=== PATIENT | male | born 1975 | race Caucasian/White ===

== ENCOUNTER 2019-03-01 22:38 | Inpatient (IN) ==
[2019-03-01] MEDS ORDERED: SODIUM CHLORIDE 0.9% 1,000 ML IV STA (23:02)
[2019-03-01] MEDS ORDERED: HYDROmorphone 2 MG/1 ML VIAL IV STA (23:02)
[2019-03-01] MEDS ORDERED: ONDANSETRON 4 MG/2 ML VIAL IV STA (23:02)
[2019-03-01] MEDS ORDERED: KETOROLAC 30 MG/1 ML VIAL IV STA (23:02)
[2019-03-01] MEDS ORDERED: PIPERACILLIN/TAZOBACTAM 3,375 MG in SODIUM CHLORIDE 0.9% 100 ML IV STA (23:45)
[2019-03-01 23:59] LABS: Apearance,Urine CLOUDY (Clear); Bilirubin,Urine Negative (Negative); Blood, Urine Negative (Negative); Glucose,Urine (UA) Negative (Negative); Ketones,Urine Negative (Negative); Nitrite,Urine Negative (Negative); Protein,Urine Negative; RBC,Urine 2 /HPF (0-4); Urine Color Yellow (Yellow); Urine Specific Gravity 1.024 (1.001-1.035)
[2019-03-02 00:28] LABS: Basophils # 0.1 10*3/uL (0.0-0.2); Basophils % 0.5 % (0.0-0.8); Eosinophils # 0.4 10*3/uL (0.0-0.87); Eosinophils % 3.2 % (0.00-10.9); Hematocrit 46.9 VOL% (42.0-52.0); Hemoglobin 15.7 GM/DL (14.0-18.0); Immature Granulocytes % 0.5 %; Immature Granulocytes Absolute 0.06 #; Lymphocytes % 15.8 % (21.2-54.2); Mean Corpuscular HGB Conc 33.5 GM/DL (32-36); Mean Corpuscular Volume 86.5 FL (87-102); Mean Platelet Volume 10.2 FL (9.6-12.0); Monocytes % 8.2 % (1.7-12.7); Neutrophils % 71.8 % (38.7-73.9); Platelet Count 245 T/CUMM (130-400); Red Blood Count 5.42 MC/CUMM (3.8-5.5); Red Cell Distribution Width 14.1 % (9.3-17.3); White Blood Count 12.6 T/CUMM (4-12)
[2019-03-02 03:25] LABS: Alanine Aminotransferase 27 U/L (16-61); Albumin 3.8 G/DL (3.4-5.0); Alkaline Phosphatase 92 U/L (45-117); Amylase 41 U/L (25-115); Aspartate Amino Transferase 18 U/L (0-37); Bilirubin,Total < 0.39 MG/DL (0.2-1.0); Blood Urea Nitrogen 20 MG/DL (7-18); Calcium 8.9 MG/DL (8.5-10.1); Estimated Glom Filtration Rate 150 ML/MIN; Glucose 119 MG/DL (74-106); Total Protein 7.2 G/DL (6.4-8.3); Troponin I < 0.015 NG/ML (0.00-0.045)
[2019-03-02] MEDS ORDERED: ACETAMINOPHEN 325 MG TABLET PO PRN (04:35)
[2019-03-02] MEDS ORDERED: ONDANSETRON 4 MG/2 ML VIAL IV PRN (04:35)
[2019-03-02] MEDS: SODIUM CHLORIDE 0.9% 1,000 ML IV SCH ×2 (05:00→20:39)
[2019-03-02] MEDS ORDERED: ceFAZolin 1,000 MG in SYRINGE 1 EACH IV ONE (07:20)
[2019-03-02] MEDS ORDERED: ceFAZolin 1,000 MG VIAL ONE (07:42)
[2019-03-02] MEDS ORDERED: LIDOCAINE 1%/EPI INJ 20 ML VIAL ONE (08:24)
[2019-03-02] MEDS ORDERED: BUPIVACAINE MPF 0.25% 30 ML VIAL ONE (08:24)
[2019-03-02] MEDS ORDERED: SUGAMMADEX 200 MG/2 ML VIAL IV ONE (09:35)
[2019-03-02] MEDS ORDERED: TISSUE ADHESIVE 1 EACH APPLICATOR TOP ONE (09:39)
[2019-03-02] MEDS ORDERED: propofoL 200 MG/20 ML VIAL IV ONE (10:03)
[2019-03-02] MEDS ORDERED: fentaNYL 100 MCG/2 ML VIAL ONE (10:04)
[2019-03-02] MEDS ORDERED: LIDOCAINE 2% 5 ML VIAL ONE (10:04)
[2019-03-02] MEDS ORDERED: MIDAZOLAM 2 MG/2 ML VIAL ONE (10:04)
[2019-03-02] MEDS ORDERED: ONDANSETRON 4 MG/2 ML VIAL ONE (10:04)
[2019-03-02] MEDS ORDERED: SUCCINYLCHOLINE 200 MG/10 ML VIAL ONE (10:04)
[2019-03-02] MEDS ORDERED: SEVOFLURANE 1 UNIT/15 MINUTE INH ONE (10:04)
[2019-03-02] MEDS ORDERED: PHENYLEPHRINE 1 MG/10 ML SYRINGE IV ONE (10:04)
[2019-03-02] MEDS ORDERED: DEXAMETHASONE 4 MG/1 ML VIAL ONE (10:04)
[2019-03-02] MEDS ORDERED: ROCURONIUM 100 MG/10 ML VIAL IV ONE (10:05)
[2019-03-02] MEDS ORDERED: SODIUM CHLORIDE 0.9% 1,000 ML IV ONE (10:05)
[2019-03-02] MEDS: HYDROmorphone 2 MG/1 ML VIAL IV PRN ×3 (12:28→20:32)
[2019-03-02] MEDS: PIPERACILLIN/TAZOBACTAM 3,375 MG in SODIUM CHLORIDE 0.9% 100 ML IV SCH ×2 (12:34→20:33)
[2019-03-02] MEDS: PANTOPRAZOLE 40 MG VIAL IV SCH (12:35)
[2019-03-03] MEDS: HYDROmorphone 2 MG/1 ML VIAL IV PRN ×2 (01:54→11:32)
[2019-03-03] MEDS: PIPERACILLIN/TAZOBACTAM 3,375 MG in SODIUM CHLORIDE 0.9% 100 ML IV SCH ×2 (05:29→16:22)
[2019-03-03 05:48] LABS: Basophils % 0.2 % (0.0-0.8); Hematocrit 44.4 VOL% (42.0-52.0); Hemoglobin 14.9 GM/DL (14.0-18.0); Immature Granulocytes % 0.8 %; Immature Granulocytes Absolute 0.16 #; Lymphocytes # 1.1 10*3/uL (1.4-4.0); Lymphocytes % 5.2 % (21.2-54.2); Mean Corpuscular HGB Conc 33.6 GM/DL (32-36); Mean Corpuscular Volume 85.5 FL (87-102); Mean Platelet Volume 10.4 FL (9.6-12.0); Monocytes % 6.5 % (1.7-12.7); Neutrophils % 87.3 % (38.7-73.9); Platelet Count 222 T/CUMM (130-400); Red Blood Count 5.19 MC/CUMM (3.8-5.5); White Blood Count 20.7 T/CUMM (4-12)
[2019-03-03 06:09] LABS: Albumin 3.1 G/DL (3.4-5.0); Bilirubin,Total 1.5 MG/DL (0.2-1.0); Calcium 8.6 MG/DL (8.5-10.1); Osmolality,Calculated 273.8 MOS/KG (273-304); Total Protein 7.1 G/DL (6.4-8.3)
[2019-03-03 06:14] LABS: Lymphocytes 4 % (20-55); Platelet Estimate Normal; Segmented Neutrophils 90 % (50-85); Total Cells Counted 100
[2019-03-03] MEDS: DEXT 5% LACT RING KCL 20 MEQ 20 MEQ/1,000 ML BAG IV SCH ×2 (08:30→21:50)
[2019-03-03 09:01] LABS: Basophils % 0.1 % (0.0-0.8); Hematocrit 43.9 VOL% (42.0-52.0); Hemoglobin 14.8 GM/DL (14.0-18.0); Immature Granulocytes % 0.7 %; Immature Granulocytes Absolute 0.16 #; Lymphocytes # 0.8 10*3/uL (1.4-4.0); Lymphocytes % 3.4 % (21.2-54.2); Mean Corpuscular HGB Conc 33.7 GM/DL (32-36); Mean Corpuscular Volume 85.7 FL (87-102); Mean Platelet Volume 10.4 FL (9.6-12.0); Monocytes % 5.8 % (1.7-12.7); Platelet Count 217 T/CUMM (130-400); Red Blood Count 5.12 MC/CUMM (3.8-5.5); White Blood Count 22.1 T/CUMM (4-12)
[2019-03-03] MEDS: PANTOPRAZOLE 40 MG VIAL IV SCH (09:17)
[2019-03-03 09:22] LABS: Band Neutrophils 3 % (0-10); Lymphocytes 1 % (20-55); Segmented Neutrophils 93 % (50-85); Total Cells Counted 100
[2019-03-03 09:23] LABS: Hypochromasia 1+; Microcytosis Slight; Platelet Estimate Normal
[2019-03-03 09:24] LABS: Calcium 8.6 MG/DL (8.5-10.1); Total Protein 7.2 G/DL (6.4-8.3)
[2019-03-03] MEDS ORDERED: PROMETHAZINE INJ 25 MG in SODIUM CHLORIDE 0.9% 50 ML IV PRN (10:50)
[2019-03-03] MEDS: VANCOMYCIN INJ 2,000 MG in SODIUM CHLORIDE 0.9% 500 ML IV SCH (10:52)
[2019-03-03] MEDS: ENOXAPARIN 40 MG/0.4 ML SYRINGE SUBCUT SCH (10:53)
[2019-03-04] MEDS: VANCOMYCIN INJ 2,000 MG in SODIUM CHLORIDE 0.9% 500 ML IV SCH ×3 (00:47→21:45)
[2019-03-04] MEDS: PIPERACILLIN/TAZOBACTAM 3,375 MG in SODIUM CHLORIDE 0.9% 100 ML IV SCH ×3 (02:59→17:40)
[2019-03-04 06:27] LABS: Basophils % 0.2 % (0.0-0.8); Eosinophils # 0.2 10*3/uL (0.0-0.87); Eosinophils % 0.9 % (0.00-10.9); Hematocrit 42.2 VOL% (42.0-52.0); Hemoglobin 13.8 GM/DL (14.0-18.0); Immature Granulocytes % 0.6 %; Lymphocytes # 0.9 10*3/uL (1.4-4.0); Lymphocytes % 5.6 % (21.2-54.2); Mean Corpuscular HGB Conc 32.7 GM/DL (32-36); Mean Corpuscular Volume 86.5 FL (87-102); Mean Platelet Volume 10.4 FL (9.6-12.0); Monocytes % 7.3 % (1.7-12.7); Neutrophils % 85.4 % (38.7-73.9); Platelet Count 196 T/CUMM (130-400); Red Blood Count 4.88 MC/CUMM (3.8-5.5); White Blood Count 16.2 T/CUMM (4-12)
[2019-03-04] MEDS: DEXT 5% LACT RING KCL 20 MEQ 20 MEQ/1,000 ML BAG IV SCH ×3 (09:00→17:36)
[2019-03-04] MEDS: PANTOPRAZOLE 40 MG VIAL IV SCH (10:12)
[2019-03-04] MEDS: ENOXAPARIN 40 MG/0.4 ML SYRINGE SUBCUT SCH (10:24)
[2019-03-04] MEDS: SODIUM CHLORIDE 0.9% 1,000 ML IV SCH (22:56)
[2019-03-05] MEDS: DEXT 5% LACT RING KCL 20 MEQ 20 MEQ/1,000 ML BAG IV SCH (00:40)
[2019-03-05] MEDS: PIPERACILLIN/TAZOBACTAM 3,375 MG in SODIUM CHLORIDE 0.9% 100 ML IV SCH ×2 (00:47→09:08)
[2019-03-05 05:29] LABS: Basophils % 0.2 % (0.0-0.8); Eosinophils # 0.3 10*3/uL (0.0-0.87); Eosinophils % 2.4 % (0.00-10.9); Hematocrit 43.5 VOL% (42.0-52.0); Hemoglobin 14.4 GM/DL (14.0-18.0); Immature Granulocytes % 0.6 %; Immature Granulocytes Absolute 0.07 #; Lymphocytes % 7.9 % (21.2-54.2); Mean Corpuscular HGB Conc 33.1 GM/DL (32-36); Mean Corpuscular Volume 85.8 FL (87-102); Mean Platelet Volume 10.6 FL (9.6-12.0); Monocytes % 9.9 % (1.7-12.7); Platelet Count 247 T/CUMM (130-400); Red Blood Count 5.07 MC/CUMM (3.8-5.5); Red Cell Distribution Width 13.7 % (9.3-17.3); White Blood Count 12.7 T/CUMM (4-12)
[2019-03-05] MEDS: PANTOPRAZOLE 40 MG VIAL IV SCH (09:08)
[2019-03-05] MEDS: VANCOMYCIN INJ 2,000 MG in SODIUM CHLORIDE 0.9% 500 ML IV SCH (10:52)
[2019-03-05] MEDS: ENOXAPARIN 40 MG/0.4 ML SYRINGE SUBCUT SCH (10:53)
[2019-03-05 12:51] VITALS: BP 130/65
[2019-03-05] MEDS ORDERED: VANCOMYCIN INJ 1,750 MG in SODIUM CHLORIDE 0.9% 500 ML IV SCH (20:00)
== END 2019-03-05 13:10 | disposition home or self-care (01) | DRG 339 ==
LOC: N.ED 22:38 → N.EDINP 23:49 → N.3E 03-02 04:34
PROVIDERS: ADMIT Student in an Organized Health Care Education/Training Program; ATTEND Student in an Organized Health Care Education/Training Program